=== PATIENT | male | born 1955 | race Caucasian/White ===

== ENCOUNTER 2017-04-21 13:51 | Inpatient (IN) | payer BC ==
[2017-04-21] MEDS ORDERED: Sodium Chloride 0.9% 1,000 ML IV ONE (15:15)
[2017-04-21 15:21] LABS: SODIUM,NA 125 mmol/L (136-145)
[2017-04-21 15:33] LABS: CHLORIDE,CL 87 mmol/L (98-115)
[2017-04-21] MEDS ORDERED: Omeprazole 20 MG Cap.CR PO PRN (17:04)
[2017-04-21] MEDS: Albuterol/Ipratropium 3.0-0.5 MG/3 ML Neb Soln NEB SCH ×2 (17:38→22:03)
[2017-04-21] MEDS: Nicotine 7 MG/24 Hr Patch TRDERM SCH (17:44)
[2017-04-21] MEDS: Nicotine 21 MG/24 Hr Patch TRDERM SCH (17:45)
[2017-04-21] MEDS ORDERED: Levofloxacin/Dextrose 5%-Water 250 MG in Premix Bag 1 BAG IV SCH ×2 (18:00→19:00)
[2017-04-21] MEDS ORDERED: Levofloxacin/Dextrose 5%-Water 500 MG in Premix Bag 1 BAG IV SCH (18:00)
[2017-04-21] MEDS: Levofloxacin/Dextrose 5%-Water 100 ML IV SCH (18:07)
[2017-04-21] MEDS: Levofloxacin/Dextrose 5%-Water 50 ML IV SCH (18:46)
[2017-04-21] MEDS ORDERED: Sodium Chloride 0.9% 1,000 ML IV SCH (20:15)
[2017-04-22] MEDS: Acetaminophen 325 MG Tab PO PRN ×3 (02:32→20:15)
[2017-04-22] MEDS ORDERED: LORazepam 0.5 MG Tab ONE (02:56)
[2017-04-22] MEDS: LORazepam 2 MG/ML SDV IVPUSH PRN ×2 (02:57→14:26)
[2017-04-22] MEDS: Albuterol/Ipratropium 3.0-0.5 MG/3 ML Neb Soln NEB SCH ×4 (05:22→22:03)
[2017-04-22 07:50] LABS: CHLORIDE,CL 93 mmol/L (98-115); SODIUM,NA 128 mmol/L (136-145)
[2017-04-22] MEDS: Nicotine 7 MG/24 Hr Patch TRDERM SCH (08:25)
[2017-04-22] MEDS: Nicotine 21 MG/24 Hr Patch TRDERM SCH (08:26)
[2017-04-22] MEDS: Multivitamins with Minerals/Iron/Folic Acid/Lycopene Tab PO SCH (08:28)
[2017-04-22] MEDS: Aspirin 81 MG Tab.EC PO SCH (08:28)
[2017-04-22] MEDS ORDERED: Sodium Chloride 0.9% 5 ML Syringe FLUSH PRN (09:56)
[2017-04-22] MEDS ORDERED: LORazepam 0.5 MG Tab PO ONE (10:02)
--- NOTE | 2017-04-22 10:56 | PN ---
04/22/2017 PATIENT NAME: LOUISE RODRIGUEZ CHIEF COMPLAINT: Overall does feel better, had a slightly restless night. The patient is very cantankerous. HISTORY: This 61-year-old gentleman, I admitted yesterday for COPD exacerbation and pneumonia. He had failed outpatient treatment. He was sent over here from [facility]. He had been followed by Polo Jacome at the [facility] for COPD exacerbation. The patient has been battling a mild exacerbation for a few weeks now. He was initially seen on March 17 likely due to COPD exacerbation, possible early pneumonia. He was treated with azithromycin, Z- Terry, and oral prednisone therapy. He had symptomatic improvement, but then after his vacations, he started developing symptoms again. He was seen on April 13 with a chest x-ray demonstrating left lower lobe pneumonia. Repeat chest x-ray yesterday does show a stable consolidation, opacity in left parahilar region, some concern with possible mass. He eventually decided to agree to further evaluation and he was sent over from [facility] to [facility] for re-evaluation and hospital admission. WORKUP: Since upon admission does show a white count of 13.2, hemoglobin 13.3 with neutrophils about 76, very minimal improvement. Sodium was significantly low this past March of , however has risen to 128 today. Potassium 3.8, chloride 93, BUN 5 with a creatinine of 0.49, calcium 9.0. TSH was normal at 0.530. Urine random sodium was five. Microbiology, blood cultures received, sputum culture not obtained yet. PHYSICAL EXAMINATION: VITAL SIGNS: The patient is a full code. He weighs 158 pounds. Blood pressure is 128/80, temperature 97.3, heart rate 98. PULMONARY: Effort was normal. Breathing sounds slightly rhonchus. No respiratory distress. No wheezes. ABDOMEN: Soft. Good bowel tones. CV: Regular rate and rhythm. No lymphadenopathy. NEUROLOGICAL: He is alert. No cranial nerve deficit. SKIN: Warm and dry. Non diaphoretic. PSYCHIATRIC: Gets quite agitation. He is a smoker and a drinker however he is cooperative. IMPRESSION/PLAN: 1. Chronic obstructive pulmonary disease with mild acute exacerbation. He is on albuterol at home however, we will attempt to place the patient on Bevespi two puffs b.i.d. while waiting for third green party approval for this. We will place the patient on DuoNebs. Hold off on any corticosteroids at this time. 2. Hyponatremia, likely hypovolemic, however cannot rule non-small cell carcinoma. We will get a chest x-ray, chest CT today. Sodium is improved to 128, likely non renal loss as a urine sodium is 5. 3. Pneumonia, left parahilar region. Continue on Levaquin. 4. Leukocytosis. 5. Reactive thrombocytosis, likely related to infectious process of pneumonia, this is improving. 6. Hypotension, that is resolved. Lactic acid level 2.1. We will saline lock his fluids today. 7. Diabetes mellitus type 2. Holding metformin due to dehydration and possible need for chest CT contrast. His blood glucose is well controlled right now. OVERALL PLAN: The patient has agreed to chest CT with contrast today. Continue IV antibiotics. Monitor sodium level. Place the patient on Bevespi for COPD. /[id number]/MODL
[2017-04-22] MEDS ORDERED: Iopamidol 612 MG/ML 75 ML Bottle IV PRN (14:26)
[2017-04-22] MEDS ORDERED: Sodium Chloride 0.9% 50 ML SDV FLUSH ONE (14:26)
[2017-04-22] MEDS: Levofloxacin/Dextrose 5%-Water 100 ML IV SCH (18:19)
[2017-04-22] MEDS: Levofloxacin/Dextrose 5%-Water 50 ML IV SCH (19:39)
[2017-04-23] MEDS ORDERED: LORazepam 0.5 MG Tab ONE (00:55)
[2017-04-23] MEDS ORDERED: LORazepam 0.5 MG Tab PO ONE (01:00)
[2017-04-23] MEDS: Albuterol/Ipratropium 3.0-0.5 MG/3 ML Neb Soln NEB SCH ×2 (05:46→11:00)
[2017-04-23 06:10] VITALS: BP 120/76
[2017-04-23] MEDS: Nicotine 7 MG/24 Hr Patch TRDERM SCH (08:24)
[2017-04-23] MEDS: Aspirin 81 MG Tab.EC PO SCH (08:24)
[2017-04-23] MEDS: Multivitamins with Minerals/Iron/Folic Acid/Lycopene Tab PO SCH (08:24)
[2017-04-23] MEDS: Nicotine 21 MG/24 Hr Patch TRDERM SCH (08:25)
[2017-04-23] MEDS: LORazepam 2 MG/ML SDV IVPUSH PRN (08:55)
[2017-04-23 09:41] LABS: SODIUM,NA 123 mmol/L (136-145)
[2017-04-23 09:44] LABS: CHLORIDE,CL 88 mmol/L (98-115)
--- NOTE | 2017-05-04 08:10 | DISCH ---
FINAL DIAGNOSES: 1. Extensive left lower thoracic pathology with probable infiltrate and possible bronchial obstruction, perhaps lung abscess, questionable bronchopleural fistula. 2. Chronic obstructive pulmonary disease. 3. Hyponatremia, improved. 4. Leukocytosis. 5. Reactive thrombocytosis. 6. Diabetes mellitus, type 2. BRIEF HISTORY: This 61-year-old gentleman was sent over to the [facility] for evaluation for COPD and recent pneumonia. He had been followed by Jono Jacome at the [facility] for COPD exacerbation. He does have a history of COPD and he continues to smoke about 2 packs a day. He was initially seen on 03/17/2017, likely COPD exacerbation with possible early pneumonia. At that time, he was started on azithromycin and oral prednisone. He did have some symptomatic improvement, but then after his vacations were done about a week later he started developing symptoms again. He was reevaluated on 04/13/2017. Chest x-ray was done, demonstrated left lower lobe pneumonia. He was seen on the day of admission at [facility]. However, the admitting provider did not have admitting privileges, so he was sent over and I had evaluated him at [facility] and subsequently admitted him to the hospital for further workup. HOSPITAL COURSE: Despite the patient's significant pulmonary pathology, he had a very good hospital course. He never became hemodynamically unstable, never ran a temperature. I did start antibiotics for pneumonia. He did have a chest CT, which was quite concerning. Pulmonary consultation was notified and they will see him as an outpatient. The patient did get quite agitated, somewhat cantankerous, did not want to have any further ongoing stay in the hospital; however, he did agree for an outpatient pulmonary consultation and close followup. His hyponatremia transiently improved with fluids, however, it did decrease again on discharge. We did treat his left perihilar pneumonia with Levaquin. Labs on admission were 13.4 white count, on discharge was 15.5. Did have some platelet thrombocytosis, however, that was improving. His neutrophils were increasing on discharge. Sodium was 125, on discharge was 123; chloride 88; potassium normal; BUN 4 with creatinine 0.42. Thyroid was normal. Urine osmolality was 142 with random urine sodium of 5.0, that was low. He was given albuterol, DuoNeb for his COPD. I attempted to place him on Bevespi, however, that was not approved by his insurance company. Diabetes, I held his metformin due to dehydration and possible need for chest CT with contrast, which he did have. His lactic acid was normal at 2.1. He was given fluids. DISPOSITION: The patient was discharged from the hospital. He refused to stay. I did not have him sign against medical advice. However, I did place a pulmonary consultation in plus did speak to Pulmonology and he does have a Pulmonology referral the week after he got discharged for possible bronchoscopy. The patient was instructed to report to his primary care provider in [place], [place], for any shortness of breath, fever, worsening cough. He did agree to smoking cessation, tobacco, nicotine transdermal patch while in the hospital, but refused that on discharge, concerning for non-small cell carcinoma due to his hyponatremia. /[id number]/MODL
== END 2017-04-23 12:05 | disposition home or self-care (01) | DRG 140 ==
LOC: KA.MS 13:51
PROVIDERS: ADMIT Nurse Practitioner Family; ATTEND Nurse Practitioner Family
DX: J44.0 Chronic obstructive pulmonary disease with (acute) lower respiratory infection (principal); J18.9 Pneumonia, unspecified organism; J44.1 Chronic obstructive pulmonary disease with (acute) exacerbation; F17.210 Nicotine dependence, cigarettes, uncomplicated; E87.1 Hypo-osmolality and hyponatremia; D47.3 Essential (hemorrhagic) thrombocythemia; I95.9 Hypotension, unspecified; E11.9 Type 2 diabetes mellitus without complications; Z79.84 Long term (current) use of oral hypoglycemic drugs; K21.9 Gastro-esophageal reflux disease without esophagitis; I10 Essential (primary) hypertension; E78.2 Mixed hyperlipidemia; Z79.82 Long term (current) use of aspirin; Z79.899 Other long term (current) drug therapy
CPT/HCPCS: 36415; 71260; 80048; 83605; 83930; 83935; 84300; 84443; 85025; 87040; 87070; 87077; 87186; 87205; 94640; A9270-GY; J1956; J2060; J7030; Q9967